=== PATIENT | female | born 1935 | race Caucasian/White ===

== ENCOUNTER 2017-08-18 10:09 | Observation (INO) | payer OTHER ==
[~2017-08-18] VITALS: Ht 162.6 cm; Wt 65.8 kg
[2017-08-18] MEDS ORDERED: PRINIVIL10 M1 PO (11:48)
[2017-08-18] MEDS ORDERED: NORVASC5 M1 PO (11:49)
[2017-08-18] MEDS ORDERED: ASPIRIN81 M4 PO (11:50)
[2017-08-18] MEDS ORDERED: ZOCOR20 M1 PO (11:51)
[2017-08-18] MEDS ORDERED: COLACE100 M1 PO (11:52)
[2017-08-18] MEDS ORDERED: CALTRATE 600 +1 EACH PO (11:53)
[2017-08-18] MEDS ORDERED: BIOTIN1 MG (11:56)
[2017-08-18 12:19] LABS: ABSOLUTE BASOPHIL COUNT 0 /CUMM (0.0-0.2); ABSOLUTE EOSINOPHIL COUNT 0 /CUMM (0.0-0.7); ABSOLUTE GRANULOCYTE CT 10.6 /CUMM (1.4-6.5); ABSOLUTE LYMPH COUNT 0.5 /CUMM (1.2-3.4); ABSOLUTE MONOCYTE COUNT 0.7 /CUMM (0.10-0.60); BASOPHIL % 0.4 % (0.0-2.0); EOSINOPHIL % 0 % (0-5); HEMATOCRIT 32.5 % (37-47); MEAN CORPUSCULAR HGB 30.8 PG (27.0-31.0); MEAN CORPUSCULAR HGB CONC 33.7 G/DL (33.0-37.0); MEAN CORPUSCULAR VOLUME 91.4 FL (81.0-99.0); MEAN PLATELET VOLUME 7.9 FL (7.4-10.4); PLATELET COUNT 180 /CUMM (130-400); RBC DISTRIBUTION WIDTH 12.7 % (11.5-14.5); RED BLOOD CELL CT 3.55 /CUMM (4.20-5.40); WHITE BLOOD CELL COUNT 11.8 /CUMM (4.8-10.8)
--- NOTE | 2017-08-18 12:28 | ED INFLUENZA/URI COMPLAINT ---
History of Present Illness General Chief Complaint: General Adult Stated Complaint: SENT BY WALK IN FOR EVAL, ?PNA Source: patient Exam Limitations: no limitations Vital Signs & Intake/Output Vital Signs & Intake/Output Vital Signs Date Time Temp Pulse Resp B/P B/P Pulse O2 O2 Flow FiO2 Mean Ox Delivery Rate 08/18 1257 100.7 95 18 139/60 96 Room Air 08/18 1045 102.4 08/18 1032 98.0 94 18 144/73 96 Room Air Allergies Coded Allergies: NO KNOWN ALLERGIES (11/22/12) Reconcile Medications Amlodipine Besylate (Norvasc) 5 MG TABLET 1 TAB PO QAM HTN (Reported) Aspirin (Aspirin*) 81 MG TAB.CHEW 1 TAB PO QPM HEART/BLOOD (Reported) Biotin 1,000 MCG TAB.CHEW 0.5 TAB PO QAM SUPPLEMENT (Reported) Calcium Carbonate/Vitamin D3 (Caltrate 600 + D Tablet) 600 MG-800 TABLET 1 TAB PO AD SUPPLEMENT (Reported) Docusate Sodium (Colace) 100 MG CAPSULE 1 CAP PO QAM STOOL SOFTENER (Reported ) Guaifenesin/Dextromethorphan (Guaifenesin Dm Syrup) 100 MG-10 MG/5 ML SYRUP 10 ML PO Q6P PRN COUGH Lisinopril (Prinivil) 10 MG TABLET 1 TAB PO DAILY HTN (Reported) Multiple Vitamin (Multivitamins) 1 EACH TABLET 1 TAB PO QAM SUPPLEMENT ( Reported) Oseltamivir Phosphate (Tamiflu) 30 MG CAPSULE 1 TAB PO BID FLU START TAKING TONIGHT 08/21/17 PM Simvastatin (Zocor*) 20 MG TABLET 1 TAB PO QPM CHOLESTEROL (Reported) Triage Note: 82 YEAR OLD FEMALE SENT TO ER BY WALK IN, PT WAS THERE DUE TO FEVER AND COUGH AND WEAK, PT TESTED POSITIVE FOR THE FLU. AFEBRILE AT TRIAGE PT TOOK TYLENOL THIS AM. PT NOTED WITH A LOOSE COUGH, PT WAS SENT FOR CXR Triage Nurses Notes Reviewed? yes Onset: Gradual Duration: day(s):, constant, continues in ED, waxing and waning Severity: moderate HPI: Patient presents for evaluation of flulike symptoms and cough productive of phlegm. Patient was evaluated in walk-in center who felt the patient may be suffering from pneumonia and asked her to be evaluated in the emergency department. She tested positive for flu at the walk in. She states she has had a fever, loose cough and weakness without associated cp,rash, nausea, vomiting or diarrhea. no known ill contacts or recent travel. Past History Travel History Traveled to [place] past 21 day No Medical History Any Pertinent Medical History? see below for history Neurological: NONE EENT: NONE Cardiovascular: hypertension, hyperlipidemia Respiratory: NONE Gastrointestinal: NONE Hepatic: NONE Renal: NONE Musculoskeletal: NONE Psychiatric: NONE Endocrine: NONE Blood Disorders: NONE Cancer(s): NONE Pneumonia Vaccine: 07/24/04 Influenza Vaccine: 06/07/20 Surgical History Surgical History: non-contributory Psychosocial History Who do you live with Spouse Services at Home None What is your primary language Swedish Tobacco Use: Never used ETOH Use: denies use Illicit Drug Use: denies illicit drug use Family History Hx Contributory? No Review of Systems Review of Systems Constitutional: Reports: see HPI. EENTM: Reports: no symptoms. Respiratory: Reports: see HPI. Cardiovascular: Reports: no symptoms. GI: Reports: no symptoms. Genitourinary: Reports: no symptoms. Musculoskeletal: Reports: no symptoms. Skin: Reports: no symptoms. Neurological/Psychological: Reports: no symptoms. Hematologic/Endocrine: Reports: no symptoms. Immunologic/Allergic: Reports: no symptoms. All Other Systems: Reviewed and Negative Physical Exam Physical Exam Ears, Nose, Throat: SEE BELOW Comments: Gen.: Well-nourished, well-developed, no acute respiratory distress. Head: Normocephalic, atraumatic. Eyes: Normal inspection bilaterally Ears: Normal inspection bilaterally Nose: Normal inspection Throat/mouth : Moist mucosa Neck: Supple, full range of motion, no goiter Heart: Regular rate and rhythm, no murmurs rubs or gallops Lungs: Rhonchi bilaterally with otherwise good air entry Chest: Nontender Back: Normal range of motion Abdomen: Soft, nontender, nondistended, normal bowel sounds Extremities: Normal range of motion grossly, equal radial pulses, no cyanosis clubbing or edema Neurologic: Cranial nerves grossly intact, speech is clear Skin: warm and dry Psychiatric: Calm, cooperative, no apparent delusions or hallucinations Core Measures Sepsis Present: No Sepsis Focused Exam Completed? No Progress Differential Diagnosis: pneumonia, influenza, chf Plan of Care: Orders Procedure Date/time Status BLOOD CULTURE 08/18 1247 Active BLOOD CULTURE 08/18 1228 Active COMPREHENSIVE METABOLIC PANEL 08/18 1205 Complete CBC WITHOUT DIFFERENTIAL 08/18 1205 Complete Current Medications Sig/Darwin Start time Last Medication Dose Stop Time Status Admin Oseltamivir Phosphate 75 MG ONCE ONE 08/18 1500 UNVr (Tamiflu 75MG) 08/18 1501 Laboratory Tests 08/18/17 1130: Anion Gap 14, Estimated GFR 39 L, BUN/Creatinine Ratio 31.5 H, Glucose 105 H, Calcium 9.5, Total Bilirubin 0.3, AST 76 H, ALT 38, Alkaline Phosphatase 56, Total Protein 7.1, Albumin 3.6, Globulin 3.5, Albumin/Globulin Ratio 1.0 L, CBC w Diff NO MAN DIFF REQ, RBC 3.55 L, MCV 91.4, MCH 30.8, MCHC 33.7, RDW 12.7, MPV 7.9, Gran % 89.8 H, Lymphocytes % 3.9 L, Monocytes % 5.9, Eosinophils % 0, Basophils % 0.4, Absolute Granulocytes 10.6 H, Absolute Lymphocytes 0.5 L, Absolute Monocytes 0.7 H, Absolute Eosinophils 0, Absolute Basophils 0 Microbiology 08/18 1254 BLOOD: Blood Culture - RECD 08/18 1248 BLOOD: Blood Culture - RECD 08/18 1228 BLOOD: Blood Culture - ORD Diagnostic Imaging: Discussed w/RAD: Radiology Read. CXR Impression: PATIENT: SYEDA LYONS PRESENT AGE: 82 PATIENT ACCOUNT NO: [id number] : 35 LOCATION: [facility] ORDERING PHYSICIAN: Toni Luna MD SERVICE DATE: 08/18/17 EXAM TYPE: RAD - XRY-CHEST XRAY, TWO VIEWS EXAMINATION: XR CHEST CLINICAL INFORMATION: Cough and bilateral rhonchi. COMPARISON: Chest x-ray 07/01/2009 TECHNIQUE: 2 views of the chest were obtained. FINDINGS: Symmetric lung inflation. There is no focal consolidation, pleural effusion, or pneumothorax. Central vascular congestion without overt edema remain similar to the previous study. Cardiac silhouette size is normal. Severe degenerative changes involving the right glenohumeral joint. Thoracic spondylosis. No acute osseous findings. IMPRESSION: No acute pulmonary process. Similar appearing central vascular congestion without overt edema. DICTATED BY: Toni Rocha MD DATE/TIME DICTATED:08/18/171352 ROVING TELLER:KEUYR DATE/TIME TRANSCRIBED:08/18/171352 CONFIDENTIAL, DO NOT COPY WITHOUT APPROPRIATE AUTHORIZATION. <Electronically signed in Other Vendor System> SIGNED BY: Toni Rocha MD 08/18/17 5405 Initial ED EKG: none Comments: pt signed out to dr marcelo. Departure Departure Disposition: HOME OR SELF CARE Condition: Stable Clinical Impression Primary Impression: Influenza Referrals: Unknown (PCP/Family) Departure Forms: Customer Survey General Discharge Information Prescriptions: Current Visit Scripts Guaifenesin/Dextromethorphan (Guaifenesin Dm Syrup) 10 ML PO Q6P PRN COUGH #1 BOT Oseltamivir Phosphate (Tamiflu) 1 TAB PO BID #5 TAB START TAKING TONIGHT 08/21/17 PM
[2017-08-18 12:32] LABS: GRANULOCYTE % 89.8 % (42.2-75.2)
--- NOTE | 2017-08-18 13:59 | RADIOLOGY REPORT ---
EXAMINATION: XR CHEST CLINICAL INFORMATION: Cough and bilateral rhonchi. COMPARISON: Chest x-ray 07/01/2009 TECHNIQUE: 2 views of the chest were obtained. FINDINGS: Symmetric lung inflation. There is no focal consolidation, pleural effusion, or pneumothorax. Central vascular congestion without overt edema remain similar to the previous study. Cardiac silhouette size is normal. Severe degenerative changes involving the right glenohumeral joint. Thoracic spondylosis. No acute osseous findings. IMPRESSION: No acute pulmonary process. Similar appearing central vascular congestion without overt edema.
[2017-08-18] MEDS ORDERED: BIOTIN1000 MC1 PO (16:42)
[2017-08-18] MEDS ORDERED: MULTIVITAMINS1 EAC9 PO (16:42)
--- NOTE | 2017-08-18 18:06 | History & Physical ---
Britton WEBB,[facility] 08/18/17 1805: General Information and HPI MD Statement: I have seen and personally examined SYEDA LYONS and documented this H&P. The patient is a 82 year old F who presented with a patient stated chief complaint of [flu]. Source of Information: patient, family (son) History of Present Illness: 82-year-old female with past medical history of ckd, hypertension, hyperlipidemia, anemia, ckd, constipation presenting for flu. The patient's son states that he had a upper respiratory infection sometime last week. The son then stated that he had dinner with the patient on Monday. The son found out that he had the flu on Monday. The patient started feeling ill around Monday. On the patient started having cough and what her son describes as a growley voice. The patient went to visit the walk-in clinic and [place]. Was found to have positive flu. As the patient was brought to leave she felt too weak and was unable to fully ambulate. The patient was sent to go to the ER. Of note the patient had a 102 fever at home per son. The patient did not have a flu shot this year. The patient currently complains of some sore throat and constipation. The patient denies any chest pain, palpitations, changes in elimination, joint pain, muscle pain, headaches, and denies any recent travel. Allergies/Medications Allergies: Coded Allergies: NO KNOWN ALLERGIES (11/22/12) Home Med list Amlodipine Besylate (Norvasc) 5 MG TABLET 1 TAB PO QAM HTN (Reported) Aspirin (Aspirin*) 81 MG TAB.CHEW 1 TAB PO QPM HEART/BLOOD (Reported) Biotin 1,000 MCG TAB.CHEW 0.5 TAB PO QAM SUPPLEMENT (Reported) Calcium Carbonate/Vitamin D3 (Caltrate 600 + D Tablet) 600 MG-800 TABLET 1 TAB PO AD SUPPLEMENT (Reported) Docusate Sodium (Colace) 100 MG CAPSULE 1 CAP PO QAM STOOL SOFTENER (Reported ) Lisinopril (Prinivil) 10 MG TABLET 1 TAB PO DAILY HTN (Reported) Multiple Vitamin (Multivitamins) 1 EACH TABLET 1 TAB PO QAM SUPPLEMENT ( Reported) Simvastatin (Zocor*) 20 MG TABLET 1 TAB PO QPM CHOLESTEROL (Reported) Past History Travel History Traveled to [place] past 21 day No Medical History Neurological: NONE EENT: NONE Cardiovascular: hypertension, hyperlipidemia Respiratory: NONE Gastrointestinal: NONE Hepatic: NONE Renal: NONE Musculoskeletal: NONE Psychiatric: NONE Endocrine: NONE Blood Disorders: NONE Cancer(s): NONE Pneumonia Vaccine: 07/24/04 Influenza Vaccine: 06/07/20 Surgical History Surgical History: non-contributory Past Family/Social History Psychosocial History Services at Home: None ETOH Use: denies use Illicit Drug Use: denies illicit drug use Review of Systems Review of Systems Constitutional: Reports: malaise, weakness. EENTM: Reports: throat pain. Cardiovascular: Reports: no symptoms. Respiratory: Reports: no symptoms. GI: Reports: constipation. Genitourinary: Reports: no symptoms. Musculoskeletal: Reports: no symptoms. Exam & Diagnostic Data Last 24 Hrs of Vital Signs/I&O Vital Signs Date Time Temp Pulse Resp B/P B/P Pulse O2 O2 Flow FiO2 Mean Ox Delivery Rate 08/19 0000 Nasal 2.0L Cannula 08/18 2017 99.4 80 20 125/63 86 Room Air 08/18 1852 98.4 100 20 141/97 92 Room Air 08/18 1623 99.3 92 20 129/58 96 Room Air 08/18 1534 100.3 08/18 1515 100.3 93 20 155/67 94 Room Air 08/18 1257 100.7 95 18 139/60 96 Room Air 08/18 1045 102.4 08/18 1032 98.0 94 18 144/73 96 Room Air Intake & Output 08/19 0800 08/19 0000 08/18 1600 Intake Total 630 Output Total 0 Balance 630 Intake, IV 150 Intake, Oral 480 Number 0 Bowel Movements Output, Urine 0 Patient 145 lb Weight Physical Exam General Appearance Alert, Oriented X3, Cooperative, No Acute Distress HEENT normal oral mucosa Cardiovascular Regular Rate, Normal S1, Normal S2 Lungs inspiratory crackles right greater than left, expiratory rhonchi right greater than left Abdomen Normal Bowel Sounds, Soft, No Tenderness Vascular 2+ radial pulses Last 24 Hrs of Labs/Ilya: Laboratory Tests 08/18/17 1130: Anion Gap 14, Estimated GFR 39 L, BUN/Creatinine Ratio 31.5 H, Glucose 105 H, Lactic Acid 1.0, Calcium 9.5, Total Bilirubin 0.3, AST 76 H, ALT 38, Alkaline Phosphatase 56, Total Protein 7.1, Albumin 3.6, Globulin 3.5, Albumin/Globulin Ratio 1.0 L, CBC w Diff NO MAN DIFF REQ, RBC 3.55 L, MCV 91.4, MCH 30.8, MCHC 33.7, RDW 12.7, MPV 7.9, Gran % 89.8 H, Lymphocytes % 3.9 L, Monocytes % 5.9, Eosinophils % 0, Basophils % 0.4, Absolute Granulocytes 10.6 H, Absolute Lymphocytes 0.5 L, Absolute Monocytes 0.7 H, Absolute Eosinophils 0, Absolute Basophils 0 Microbiology 08/18 223 LOWER RESP: Respiratory Culture - RES 08/18 223 LOWER RESP: Gram Stain - RES 08/18 1254 BLOOD: Blood Culture - RECD 08/18 1248 BLOOD: Blood Culture - RECD 08/18 1228 BLOOD: Blood Culture - ORD Assessment/Plan Assessment: 82-year-old female with past medical history of ckd, hypertension, hyperlipidemia, presenting for flu. P: #Flu T 102.4, WBC 11.8 CXR: No acute pulmonary process. Similar appearing central vascular congestion without overt edema. -Continue Tamiflu -Continue guaifenesin #anemia H/H 10.9/32.5 -Currently at baseline continue to monitor #ckd Cr 1.3 -At baseline continue to monitor #HTN -cont amlodipine, lisinopril, aspirin #hld -Continue atorvastatin in place of simvastatin #constipation -cont colace #vitamins -cont Calcium Carbonate/Vitamin D3, multivitamins #dvt prophylaxis #code status As Ranked By This Provider Problem List: 1. Flu Core Measures/Misc (04/09) Acute Coronary Syndrome ACS Diagnosis: No Congestive Heart Failure Congestive Heart Failure Diagnosis No Cerebrovascular Accident CVA/TIA Diagnosis: No VTE (View Protocol) VTE Risk Factors Acute Medical Illness No Mechanical VTE Prophylaxis d/t Other No VTE Pharm Prophylaxis d/t NA PharmProphylax ordered Sepsis (View protocol) Sepsis Present: No Brooke Deshpande MD 08/18/17 2014: Attending MD Review Statement Attending Statement Attending MD Statement: examined this patient, discuss w/resident/PA/PRESS BOX CUSTODIAN, agreed w/resident/PA/PRESS BOX CUSTODIAN, reviewed EMR data (avail) Attending Assessment/Plan: 82F PMH HTN, HLD presenting with 1 day of fever, chills, cough with white sputum , lethargy, weakness, malaise, and diffuse myalgia. Her son was diagnosed with influenza 5 days ago, recovered, and patient presented with similar symptoms today. Went to urgent care and was rapid flu positive. Febrile 103, stable BP, labs unremarkable, CXR negative for pneumonia. Patient is able to provide history, speaks in complete sentences on one breath, but appears ill and weak. 1. Influenza A 2. Generalized weakness 3. Sepsis Plan - Admit to general medicine - Tamiflu - Mucinex - Gentle IV hydration - Tylenol PRN - Continue home medications, hold anti-hypertensives for now - DVT Ppx Earl Jaramillo 08/19/17 0118: Resident Review Statement Resident Statement: examined this patient, discussed with agronomy internship, agreed with agronomy internship, discussed with family, reviewed EMR data (avail), discussed with nursing , discussed with case mgmt, reviewed images, amended to note Other Findings: This is a 82-year-old female with past medical history significant for hypertension, hyperlipidemia, constipation, GERD, spinal stenosis, bilateral hip replacement surgery presented to the emergency room from urgent care clinic for management of flu. Patient has been having fever, chills, cough, white sputum production associated with generalized weakness, muscle aches, diffuse joint pain for last 3 days. Off note she was exposed to sick contact, son who was diagnosed with the flu. Patient went to urgent care clinic this morning, tested for flu which was positive. She was sent to the [facility] for management of flu. Review of systems positive for fever, chills, productive cough, short of breath, generalized weakness and diffuse myalgias. Denied any chest pain, palpitations, nausea, vomiting, abdominal pain, constipation, diarrhea, urinary symptoms, headache. She denies smoking, ALC ABUSE, illicit drug abuse. Off note she didn't receive her flu vaccine this year. Denied any recent travel history. Follows up with child care attendant school Dr. Saavedra closely. ------ Vitals febrile MAXIMUM TEMPERATURE 102.4, heart rate 95, respiratory rate 18, blood pressure 140/70, saturating at 96 on room 8 on exam HEENT within normal limits, S1-S2 normal, bilateral breath sounds normal , bilateral rhonchus, abdomen soft nontender nondistended, no peripheral edema, cyanosis, clubbing. Pertinent labs leukocytosis 11.8, hemoglobin 10.9, hematocrit 32, platelet 190 BUN 47 and creatinine 1.3 at baseline. LFTs within normal limits Chest x-ray no acute cardiopulmonary findings Sepsis secondary to flu Patient presented with fever, chills, productive cough, generalized weakness, diffuse myalgias. MAXIMUM TEMPERATURE 102.4, leukocytosis 11.8. She met SIRS criteria at the time of admission with source of infection-FLU. LA was normal. Blood pressure normal. She'll be admitted to the general medicine floor under observation status for further management. * Placed under observation in [facility] * Monitor vitals closely * Maintain oxygen saturation above 88% * Provide supplemental oxygen if necessary * Flu was positive * Tamiflu 30 mg twice daily for 5 days * Mucinex For cough * Gentle IV hydration * Follow blood cultures and sputum culture * Tylenol IV as required for fevers greater than 101 Hypertension-continue amlodipine 5 mg and lisinopril 10 mg once her blood pressure is normal Hyperlipidemia continue aspirin 81 and Lipitor 20 daily Constipation-on bowel regimen Chronic kidney disease from hypertension-baseline creatinine 1.4 DVT prophylaxis subcutaneous heparin She is full code Regular diet
--- NOTE | 2017-08-18 20:16 | Admission Certification ---
Admission Certification Certification Statement - As attending physician, I certify that at the time of - admission, based on clinical presentation, severity of - symptoms, need for further diagnostic testing and - therapeutic interventions, and risk of adverse outcomes - without in-hospital treatment, in my clinical assessment, - this patient requires an acute hospital stay for a minimum - of two nights or longer. I have also considered psychsocial - factors such as support system, advanced age, financial - issues, cognitive issues, and failed out-patient treatments, - past re-admission history, safety of patient, and lack of - compliance as applicable. Specific rationale supporting this admission is: Sepsis secondary to influenza
[2017-08-18 20:18] VITALS: BP 125/63
[2017-08-19 07:01] VITALS: BP 114/58
--- NOTE | 2017-08-19 07:58 | PN- Housestaff ---
Britton WEBB,[facility] 08/19/17 0758: Subjective Follow-up For: flu Subjective: No acute events overnight. States SOB improving. Still coughing with productive white cough. Still has throat irriation. Review of Systems Constitutional: Reports: no symptoms. Cardiovascular: Reports: no symptoms. Respiratory: Reports: cough, short of breath, sputum production. Gastrointestinal: Reports: no symptoms. Genitourinary: Reports: no symptoms. Musculoskeletal: Reports: no symptoms. Objective Last 24 Hrs of Vital Signs/I&O Vital Signs Date Time Temp Pulse Resp B/P B/P Pulse O2 O2 Flow FiO2 Mean Ox Delivery Rate 08/19 2128 98.6 68 19 120/58 96 Room Air 08/19 1600 Room Air 08/19 1456 98.3 71 20 108/56 96 Room Air 08/19 1140 20 95 Room Air 08/19 1139 22 94 Room Air 08/19 1139 20 97 Nasal 2.0L Cannula 08/19 0908 80 122/76 08/19 0800 99 Nasal 2.0L Cannula 08/19 0701 98.7 79 20 114/58 99 Nasal 2.0L Cannula 08/19 0000 Nasal 2.0L Cannula Intake & Output 08/19 1600 08/19 0800 08/19 0000 Intake Total 1400 480 630 Output Total 240 0 Balance 1400 240 630 Intake, IV 600 150 Intake, Oral 800 480 480 Number 0 0 0 Bowel Movements Output, Urine 240 0 Patient 145 lb Weight Weight Reported by Patient Measurement Method Physical Exam General Appearance: Alert, Oriented X3, Cooperative Cardiovascular: Regular Rate, Normal S1, Normal S2 Lungs: mild diffuse inspiratory crackles Abdomen: Normal Bowel Sounds, Soft, No Tenderness Extremities: 2+ radial pulses Current Medications: Current Medications Sig/Darwin Start time Last Medication Dose Route Stop Time Status Admin Acetaminophen 650 MG Q6P PRN 08/18 1914 AC PO Acetaminophen 1,000 MG Q6P PRN 08/18 1914 AC IV Amlodipine Besylate 5 MG QAM 08/18 PO 0908 Aspirin 81 MG QPM 08/18 220 AC 08/19 PO 2047 Atorvastatin Calcium 20 MG 1700 08/19 1700 08/19 PO 1617 Benzocaine/Menthol 1 DAVID Q1P PRN 08/19 0330 08/19 PO 0530 Calcium/Vitamin D 500 MG DAILY 08/18 1912 AC 08/19 PO 0908 Docusate Sodium 100 MG QAM 08/19 1000 AC 08/19 PO 0908 Guaifenesin 600 MG Q12 08/19 1000 AC 08/19 PO 2048 Heparin Sodium 5,000 UNIT Q8 08/18 2199 AC 08/18 (Porcine) SC 2208 Influenza Virus 0.5 ML ONCE ONE 08/19 0345 DC 08/19 Vaccine IM 08/19 0346 0529 Lisinopril 10 MG DAILY 08/19 1000 AC 08/19 PO 0908 Multivitamins 1 TAB QAM 08/19 1000 AC 08/19 Therapeutic PO 0908 Oseltamivir Phosphate 30 MG BID 08/19 1000 AC 08/19 PO 08/23 0959 2048 Sodium Chloride 1,000 ML .[id number] 08/18 1914 DC 08/18 IV 08/19 0834 2208 Last 24 Hrs of Lab/Ilya Results Last 24 Hrs of Labs/Mics: Laboratory Tests 08/19/17 0745: Anion Gap 12, Estimated GFR 36 L, BUN/Creatinine Ratio 30.7 H, CBC w Diff MAN DIFF ORDERED, RBC 2.99 L, MCV 91.9, MCH 30.6, MCHC 33.3, RDW 13.1, MPV 8.3, Gran % 83.7 H, Lymphocytes % 10.4 L, Monocytes % 5.7, Eosinophils % 0, Basophils % 0.2, Absolute Granulocytes 8.1 H, Segmented Neutrophils 62, Band Neutrophils 24 H, Absolute Lymphocytes 1.0 L, Lymphocytes 8 L, Monocytes 6, Absolute Monocytes 0.6, Absolute Eosinophils 0, Absolute Basophils 0, Platelet Estimate VERIFIED BY SMEAR, Normocytic RBCs VERIFIED, Normochromic RBCs VERIFIED Assessment/Plan Assessment: 82-year-old female with past medical history of ckd, hypertension, hyperlipidemia, presenting for flu. P: #Flu T 102.4 -> 98.7 WBC 11.8 -> 9.7 CXR: No acute pulmonary process. Similar appearing central vascular congestion without overt edema. -Continue Tamiflu (day 2/5) -Continue guaifenesin #anemia H/H 10.9/32.5 -Currently at baseline continue to monitor #ckd Cr 1.3 -At baseline continue to monitor #HTN -cont amlodipine, lisinopril, aspirin #hld -Continue atorvastatin in place of simvastatin #constipation -cont colace #vitamins -cont Calcium Carbonate/Vitamin D3, multivitamins #dvt prophylaxis #FULL CODE Problem List: 1. Flu Pain Ratin Pain Location: none Pain Goal: Pain 4 or less Pain Plan: pain pathway Tomorrow's Labs & Rationales: cbc bep Jeramy WEBBBrooke 08/19/17 1230: Attending MD Review Statement Attending Statement Attending MD Statement: examined this patient, discuss w/resident/PA/LAW OFFICE RECEPTIONIST, agreed w/resident/PA/LAW OFFICE RECEPTIONIST, reviewed EMR data (avail) Attending Assessment/Plan: 82F PMH HTN, HLD presenting with 1 day of fever, chills, cough with white sputum , lethargy, weakness, malaise, and diffuse myalgia. Her son was diagnosed with influenza 5 days ago, recovered, and patient presented with similar symptoms today. Went to urgent care and was rapid flu positive. Febrile 103, stable BP, labs unremarkable, CXR negative for pneumonia. Patient is able to provide history, speaks in complete sentences on one breath, but appears ill and weak. 1. Influenza A 2. Generalized weakness 3. Sepsis Plan - Admit to general medicine - Tamiflu - Mucinex - Gentle IV hydration - Tylenol PRN - Continue home medications, hold anti-hypertensives for now - DVT Ppx
[2017-08-19 09:07] LABS: ABSOLUTE BASOPHIL COUNT 0 /CUMM (0.0-0.2); ABSOLUTE EOSINOPHIL COUNT 0 /CUMM (0.0-0.7); ABSOLUTE GRANULOCYTE CT 8.1 /CUMM (1.4-6.5); ABSOLUTE MONOCYTE COUNT 0.6 /CUMM (0.10-0.60); BASOPHIL % 0.2 % (0.0-2.0); EOSINOPHIL % 0 % (0-5); GRANULOCYTE % 83.7 % (42.2-75.2); MEAN CORPUSCULAR HGB 30.6 PG (27.0-31.0); MEAN CORPUSCULAR HGB CONC 33.3 G/DL (33.0-37.0); MEAN CORPUSCULAR VOLUME 91.9 FL (81.0-99.0); MEAN PLATELET VOLUME 8.3 FL (7.4-10.4); PLATELET COUNT 145 /CUMM (130-400); RBC DISTRIBUTION WIDTH 13.1 % (11.5-14.5); RED BLOOD CELL CT 2.99 /CUMM (4.20-5.40); WHITE BLOOD CELL COUNT 9.7 /CUMM (4.8-10.8)
[2017-08-19 09:44] LABS: HEMATOCRIT 27.5 % (37-47)
[2017-08-19 14:56] VITALS: BP 108/56
[2017-08-19 21:29] VITALS: BP 120/58
[2017-08-20 06:12] VITALS: BP 124/62
[2017-08-20 08:37] LABS: ABSOLUTE BASOPHIL COUNT 0 /CUMM (0.0-0.2); ABSOLUTE EOSINOPHIL COUNT 0.1 /CUMM (0.0-0.7); ABSOLUTE GRANULOCYTE CT 4.9 /CUMM (1.4-6.5); ABSOLUTE LYMPH COUNT 0.9 /CUMM (1.2-3.4); ABSOLUTE MONOCYTE COUNT 0.5 /CUMM (0.10-0.60); BASOPHIL % 0.2 % (0.0-2.0); EOSINOPHIL % 1.1 % (0-5); GRANULOCYTE % 77.2 % (42.2-75.2); HEMATOCRIT 28.1 % (37-47); MEAN CORPUSCULAR HGB 30.7 PG (27.0-31.0); MEAN CORPUSCULAR HGB CONC 33.3 G/DL (33.0-37.0); MEAN CORPUSCULAR VOLUME 92.2 FL (81.0-99.0); MEAN PLATELET VOLUME 8.1 FL (7.4-10.4); PLATELET COUNT 150 /CUMM (130-400); RED BLOOD CELL CT 3.05 /CUMM (4.20-5.40); WHITE BLOOD CELL COUNT 6.3 /CUMM (4.8-10.8)
--- NOTE | 2017-08-20 08:47 | PN- Housestaff ---
Earl Jaramillo 08/20/17 0846: Subjective Follow-up For: FLU Subjective: Patient was seen and examined this morning. She is alert awake and oriented. No acute events noticed Patient remained afebrile with normal WBC count. Denied any fever, chills, vitals remained stable She reports productive cough overnight, she couldn't sleep No other complaints Review of Systems Constitutional: Reports: see HPI. Objective Last 24 Hrs of Vital Signs/I&O Vital Signs Date Time Temp Pulse Resp B/P B/P Pulse O2 O2 Flow FiO2 Mean Ox Delivery Rate 08/20 0849 78 126/80 08/20 0800 95 Room Air 08/20 0612 98.6 76 20 124/62 93 08/20 0000 Room Air 08/19 2129 98.6 68 19 120/58 96 Room Air 08/19 1600 Room Air 08/19 1456 98.3 71 20 108/56 96 Room Air 08/19 1140 20 95 Room Air 08/19 1139 22 94 Room Air 08/19 1139 20 97 Nasal 2.0L Cannula Intake & Output 08/20 1600 08/20 0800 08/20 0000 Intake Total 240 950 Output Total 500 Balance 240 450 Intake, Oral 240 950 Number 1 Bowel Movements Output, Urine 500 Physical Exam General Appearance: Alert, Oriented X3, Cooperative, No Acute Distress Other Physical Findings: HEENT normal oral mucosa Cardiovascular Regular Rate, Normal S1, Normal S2 Lungs inspiratory crackles right greater than left, expiratory rhonchi right greater than left Abdomen Normal Bowel Sounds, Soft, No Tenderness Vascular 2+ radial pulses Current Medications: Current Medications Sig/Darwin Start time Last Medication Dose Route Stop Time Status Admin Acetaminophen 650 MG Q6P PRN 08/18 1914 AC 08/20 PO 0850 Acetaminophen 1,000 MG Q6P PRN 08/18 1914 AC IV Amlodipine Besylate 5 MG QAM 08/18 1911 AC 08/20 PO 0850 Aspirin 81 MG QPM 08/18 2200 AC 08/19 PO 2047 Atorvastatin Calcium 20 MG 1700 08/19 1700 AC 08/19 PO 1617 Benzocaine/Menthol 1 DAVID Q1P PRN 08/19 0330 AC 08/19 PO 0530 Calcium/Vitamin D 500 MG DAILY 08/18 1912 AC 08/20 PO 0849 Docusate Sodium 100 MG QAM 08/19 1000 AC 08/20 PO 0850 Guaifenesin 600 MG Q12 08/19 1000 AC 08/20 PO 0850 Guaifenesin/ 10 ML Q6P PRN 08/20 0945 AC Dextromethorphan PO Heparin Sodium 5,000 UNIT Q8 08/18 2199 AC 08/18 (Porcine) SC 2207 Lisinopril 10 MG DAILY 08/19 1000 AC 08/20 PO 0849 Multivitamins 1 TAB QAM 08/19 1000 AC 08/20 Therapeutic PO 0849 Oseltamivir Phosphate 30 MG BID 08/19 1000 AC 08/20 PO 08/23 0959 0849 Last 24 Hrs of Lab/Ilya Results Last 24 Hrs of Labs/Mics: Laboratory Tests 08/20/17 0710: Anion Gap 11, Estimated GFR 36 L, BUN/Creatinine Ratio 35.0 H, CBC w Diff NO MAN DIFF REQ, RBC 3.05 L, MCV 92.2, MCH 30.7, MCHC 33.3, RDW 13.0, MPV 8.1, Gran % 77.2 H, Lymphocytes % 13.6 L, Monocytes % 7.9, Eosinophils % 1.1, Basophils % 0.2, Absolute Granulocytes 4.9, Absolute Lymphocytes 0.9 L, Absolute Monocytes 0.5, Absolute Eosinophils 0.1, Absolute Basophils 0 Assessment/Plan Assessment: This is a 82-year-old female with past medical history significant for hypertension, hyperlipidemia, constipation, GERD, spinal stenosis, bilateral hip replacement surgery presented to the emergency room from urgent care clinic for management of flu. ------ Vitals febrile MAXIMUM TEMPERATURE 102.4, heart rate 95, respiratory rate 18, blood pressure 140/70, saturating at 96 on room 8 on exam HEENT within normal limits, S1-S2 normal, bilateral breath sounds normal , bilateral rhonchus, abdomen soft nontender nondistended, no peripheral edema, cyanosis, clubbing. Pertinent labs leukocytosis 11.8, hemoglobin 10.9, hematocrit 32, platelet 190 BUN 47 and creatinine 1.3 at baseline. LFTs within normal limits Chest x-ray no acute cardiopulmonary findings Sepsis secondary to flu Patient presented with fever, chills, productive cough, generalized weakness, diffuse myalgias. MAXIMUM TEMPERATURE 102.4, leukocytosis 11.8. She met SIRS criteria at the time of admission with source of infection-FLU. LA was normal. Blood pressure normal. She was admitted to the general medicine floor under observation status for further management. * Placed under observation in [facility] * Monitor vitals closely * Maintain oxygen saturation above 88% * Provide supplemental oxygen if necessary * Flu was positive * Tamiflu 30 mg twice daily for 5 days * Mucinex For cough * Follow blood cultures and sputum culture- neg so far * Tylenol IV as required for fevers greater than 101 Hypertension-continue amlodipine 5 mg and lisinopril 10 mg Hyperlipidemia continue aspirin 81 and Lipitor 20 daily Constipation-on bowel regimen Chronic kidney disease from hypertension-baseline creatinine 1.4 DVT prophylaxis subcutaneous heparin She is full code Regular diet Problem List: 1. Flu Pain Ratin Pain Location: n/a Pain Goal: Remain pain free Pain Plan: none Tomorrow's Labs & Rationales: none Brooke Deshpande MD 08/20/17 1327: Attending MD Review Statement Attending Statement Attending MD Statement: examined this patient, discuss w/resident/PA/REAL ESTATE CONSULTANT, agreed w/resident/PA/REAL ESTATE CONSULTANT, reviewed EMR data (avail) Attending Assessment/Plan: 82F PMH HTN, HLD presenting with 1 day of fever, chills, cough with white sputum , lethargy, weakness, malaise, and diffuse myalgia. Her son was diagnosed with influenza 5 days ago, recovered, and patient presented with similar symptoms today. Went to urgent care and was rapid flu positive. Febrile 103, stable BP, labs unremarkable, CXR negative for pneumonia. Patient is slowly improving but is still weak and unsteady on her feet. 1. Influenza A 2. Generalized weakness 3. Sepsis Plan - May benefit from further PT prior to discharge - Tamiflu - Mucinex - Gentle IV hydration - Tylenol PRN - Continue home medications, hold anti-hypertensives for now - DVT Ppx
[2017-08-20 14:39] VITALS: BP 122/56
[2017-08-20 21:40] VITALS: BP 112/54
[2017-08-21 06:31] VITALS: BP 126/62
--- NOTE | 2017-08-21 07:23 | PN- Housestaff ---
Britton WEBB,[facility] 08/21/17 0723: Subjective Follow-up For: Flu Subjective: No acute events overnight. Pt states she is doing better. SOB and weakness are better. Still having productive cough with white phelgm. Review of Systems Constitutional: Reports: no symptoms. Cardiovascular: Reports: no symptoms. Respiratory: Reports: cough, short of breath, sputum production. Gastrointestinal: Reports: no symptoms. Genitourinary: Reports: no symptoms. Musculoskeletal: Reports: see HPI (weakness). Objective Last 24 Hrs of Vital Signs/I&O Vital Signs Date Time Temp Pulse Resp B/P B/P Pulse O2 O2 Flow FiO2 Mean Ox Delivery Rate 08/21 0832 Room Air 2.0L 08/21 0631 98.4 60 20 126/62 94 08/21 0000 Room Air 08/20 2140 98.3 70 18 112/54 98 Room Air 08/20 1600 Room Air 08/20 1439 98.0 64 20 122/56 96 Room Air Intake & Output 08/21 1600 08/21 0800 08/21 0000 Intake Total 950 Output Total 600 Balance 350 Intake, Oral 950 Output, Urine 600 Physical Exam General Appearance: Alert, Oriented X3, Cooperative, No Acute Distress, sitting in chair comfortably on room air Cardiovascular: Regular Rate, Normal S1, Normal S2 Lungs: LML crackles. LLL decreased air movement Abdomen: Normal Bowel Sounds, Soft, No Tenderness Vascular: 2+ radial pulses Current Medications: Current Medications Sig/Darwin Start time Last Medication Dose Route Stop Time Status Admin Acetaminophen 650 MG Q6P PRN 08/18 1914 AC 08/20 PO 0850 Acetaminophen 1,000 MG Q6P PRN 08/18 1914 DC IV Amlodipine Besylate 5 MG QAM 08/18 1911 AC 08/20 PO 0850 Aspirin 81 MG QPM 08/18 2200 AC 08/20 PO 1659 Atorvastatin Calcium 20 MG 1700 08/19 1700 AC 08/20 PO 1657 Benzocaine/Menthol 1 DAVID Q1P PRN 08/19 0330 AC 08/19 PO 0530 Calcium/Vitamin D 500 MG DAILY 08/18 1912 AC 08/20 PO 0849 Docusate Sodium 100 MG QAM 08/19 1000 AC 08/20 PO 0850 Guaifenesin 600 MG Q12 08/19 1000 AC 08/20 PO 2056 Guaifenesin/ 10 ML Q6P PRN 08/20 0945 AC 08/20 Dextromethorphan PO 2055 Heparin Sodium 5,000 UNIT Q8 08/18 2200 AC 08/18 (Porcine) SC 2207 Lisinopril 10 MG DAILY 08/19 1000 AC 08/20 PO 0849 Multivitamins 1 TAB QAM 08/19 1000 AC 08/20 Therapeutic PO 0849 Oseltamivir Phosphate 30 MG BID 08/19 1000 AC 08/20 PO 08/23 0959 2055 Assessment/Plan Assessment: 82-year-old female with past medical history of ckd, hypertension, hyperlipidemia, presenting for flu. P: #placement issues Patient does not feel safe to go home today as she states her family is gone and she will not have anyone to take care of her. She is also worried about feeding. -discuss with case management regarding discharge planning. #Flu T 102.4 -> 98.4 WBC 11.8 -> 9.7 with 24 bands -> 6.3 no bands (08/20) CXR: No acute pulmonary process. Similar appearing central vascular congestion without overt edema. -PT recommending home PT but pt does not like choices. being discharged with home PT -Continue Tamiflu (day 3/5) -Continue robitussin #anemia H/H 9.4/28.1 (08/20) -Currently at baseline continue to monitor #ckd Cr 1.4 (08/20) -At baseline continue to monitor #HTN -cont amlodipine, lisinopril, aspirin #hld -Continue atorvastatin in place of simvastatin #constipation -cont colace #vitamins -cont Calcium Carbonate/Vitamin D3, multivitamins #dvt prophylaxis #FULL CODE Problem List: 1. Flu Pain Ratin Pain Location: none Pain Goal: Pain 4 or less Pain Plan: pain pathway Tomorrow's Labs & Rationales: cbc bep Gila Claire 08/21/17 1432: Attending MD Review Statement Attending Statement Attending MD Statement: examined this patient, discuss w/resident/PA/REPORT CLERK, agreed w/resident/PA/REPORT CLERK, discussed with family, reviewed EMR data (avail), discussed with nursing, discussed with case mgmt, reviewed images, amended to note Attending Assessment/Plan: 82F PMH HTN, HLD presenting with 1 day of fever, chills, cough with white sputum , lethargy, weakness, malaise, and diffuse myalgia. Her son was diagnosed with influenza 5 days ago, recovered, and patient presented with similar symptoms today. Went to urgent care and was rapid flu positive. Febrile 103, stable BP, labs unremarkable, CXR negative for pneumonia. Patient is clinically improving. Patient here for flu and generalised weakness. Patient is medically stable for discharge. Case management consulted for dc planning. DC home with VNS. FOLLOW UP PCP in 3-5 days of discharge.
[2017-08-21] MEDS ORDERED: GUAIFENESIN DM S5 ML PO (13:16)
[2017-08-21] MEDS ORDERED: TAMIFLU30 M1 PO ×2 (13:16→14:28)
--- NOTE | 2017-08-21 13:17 | Patient Discharge Instructions ---
Discharge Instructions General Discharge Information Special Instructions: Please follow up with your pcp in 1-2 weeks. Please take your medications as perscribed. Acute Coronary Syndrome Inclusion Criteria At DC or during hospital stay patient has or had the following: ACS DIAGNOSIS No Discharge Core Measures Meds if any: Prescribed or Continued at Discharge Meds if any: NOT Prescribed or Continued at Discharge Congestive Heart Failure Inclusion Criteria At DC or during hospital stay patient has or had the following: CHF DIAGNOSIS No Discharge Core Measures Meds if any: Prescribed or Continued at Discharge Meds if any: NOT Prescribed or Continued at Discharge Cerebrovascular accident Inclusion Criteria At DC or during hospital stay patient has or had the following: CVA/TIA Diagnosis No Discharge Core Measures Meds if any: Prescribed or Continued at Discharge Meds if any: NOT Prescribed or Continued at Discharge Venous thromboembolism Inclusion Criteria VTE Diagnosis No VTE Type NONE VTE Confirmed by (Test) NONE Discharge Core Measures - Per Current guidelines, there needs to be overlap - treatment for the first 5 days of Warfarin therapy. - If discharged on Warfarin prior to 5 days of - overlap therapy, the patient will need to be - assessed for post discharge needs including - *Post discharge parental anticoagulation - *Warfarin and/or parental anticoagulation education - *Follow up date to check INR post discharge At least 5 days overlap therapy as Inpatient No Meds if any: Prescribed or Continued at Discharge Note: Overlap Therapy is Warfarin and Anticoagulant Meds if any: NOT Prescribed or Continued at Discharge
[2017-08-21 13:39] VITALS: BP 128/62
--- NOTE | 2017-08-23 17:17 | Discharge Summary ---
Visit Information Visit Dates Admission Date: 08/18/17 Discharge Date: 08/21/17 Hospital Course Course Attending Physician: Gila Claire MD Primary Care Physician: Unknown Hospital Course: Assessnment: 82-year-old female with past medical history of ckd, hypertension, hyperlipidemia, presenting for flu. Problems: #Flu Tmax upon presentation was 102.4. Initial WBC was 11.8 and downtrended during admission. CXR was negative for any acute pulmonary process. She was treated with tamiflu and discharged with 2.5 more days to complete a 5 day course. She was also discharged with Guaifensin DM for her cough and congestion. PT initially recommeded STR but she did not like the rehab choices. She was discharged with home PT. #anemia H/H remained stable around 9.4/28.1 which is her baseline. #ckd Cr remained around 1.4 which is her baseline. #HTN -continued amlodipine, lisinopril, aspirin #hld -Continued atorvastatin in place of simvastatin during admission #constipation -continued colace #vitamins -continued calcium carbonate/Vitamin D3, multivitamins Allergies: Coded Allergies: NO KNOWN ALLERGIES (11/22/12) Disposition Summary Disposition Principal Diagnosis: Flui Additional Diagnosis: none Discharge Disposition: home health services Discharge Instructions General Discharge Information Code Status: Full Code Patient's Diet: heart healthy Patient's Activity: As tolerated Follow-Up Instructions/Appts: Please follow up with your pcp in 1-2 weeks. Please take your medications as perscribed. Medications at Discharge Discharge Medications: Continue taking these medications: Lisinopril (Prinivil) 10 MG TABLET 1 Tablet ORAL DAILY Comments: Last Taken: 08/21/17 Time: 0940 AM Amlodipine Besylate (Norvasc) 5 MG TABLET 1 Tablet ORAL Every Morning Comments: Last Taken: 08/21/17 Time: 0940 AM Aspirin (Aspirin*) 81 MG TAB.CHEW 1 Tablet ORAL Every night Comments: Last Taken: 08/20/17 Time: 500 PM Simvastatin (Zocor*) 20 MG TABLET 1 Tablet ORAL Every night Comments: NOT GIVEN IN HOSPITAL, LIPITOR GIVEN 08/20/17 AT 5 PM Docusate Sodium (Colace) 100 MG CAPSULE 1 Capsule ORAL Every Morning Comments: Last Taken: 08/21/17 Time: 0940 AM Calcium Carbonate/Vitamin D3 (Caltrate 600 + D Tablet) 600 MG-800 TABLET 1 Tablet ORAL As Directed Comments: Last Taken: 08/21/17 Time: 0940 AM Biotin (Biotin) 1,000 MCG TAB.CHEW 0.5 Tablet ORAL Every Morning Comments: NOT GIVEN IN HOSPITAL Multiple Vitamin (Multivitamins) 1 EACH TABLET 1 Tablet ORAL Every Morning Comments: Last Taken: 08/21/17 Time: 0940 AM Start taking the following new medications: Oseltamivir Phosphate (Tamiflu) 30 MG CAPSULE 1 Tablet ORAL TWICE DAILY Qty = 5 No Refills Instructions: START TAKING TONIGHT 08/21/17 PM Comments: Last Taken: 08/21/17 Time: 0940 AM Guaifenesin/Dextromethorphan (Guaifenesin Dm Syrup) 100 MG-10 MG/5 ML SYRUP 10 Milliliters ORAL EVERY SIX HOURS NEEDED as needed for COUGH Qty = 1 No Refills Comments: Last Taken: 08/21/17 Time: 0940 AM Copies To: Unknown
== END 2017-08-21 16:36 | disposition home health service (06) ==
LOC: ERH 10:09 → ERHI 16:36 → 2NB 16:36 → ENRESERV 18:37 → ENTRNSPT 18:59 → CMPTRNSPT 19:24 → 2NB 19:27 → DELTRNSPT 19:34 → 2NB 08-21 08:43 → ENPENDDIS 08-21 14:58 → ENTRNSPT 08-21 16:18 → 2NB 08-21 16:36 → CMPTRNSPT 08-21 16:41
PROVIDERS: Emergency Medicine; Hospitalist; Student in an Organized Health Care Education/Training Program
DX: A41.9 Sepsis, unspecified organism (principal); J09.X2 Influenza due to identified novel influenza A virus with other respiratory manifestations; I12.9 Hypertensive chronic kidney disease with stage 1 through stage 4 chronic kidney disease, or unspecified chronic kidney disease; N18.9 Chronic kidney disease, unspecified; E78.5 Hyperlipidemia, unspecified; D64.9 Anemia, unspecified; K59.00 Constipation, unspecified; Z79.82 Long term (current) use of aspirin
CPT/HCPCS: 36415; 71046; 82436; 87040; 87070; 96372; 97116-GO; 97116-GP; 97161-GP; G0008; G0378; G8978-GP; G8979-GP; G8980-GP; J0131; J1644; J3490; Q2036